=== PATIENT | male | born 1965 | race Caucasian/White ===

== ENCOUNTER 2020-08-15 11:34 | Observation (INO) | payer OTHER ==
[~2020-08-15] VITALS: Ht 182.9 cm; Wt 124.5 kg
[2020-08-15 12:17] LABS: BASOPHILS ABSOLUTE AUTO 0.16 K/mm3 (0.00-0.23); BASOPHILS PERCENT AUTO 2 % (0-2); EOSINOPHILS ABSOLUTE AUTO 0.33 K/mm3 (0.00-0.68); EOSINOPHILS PERCENT AUTO 4 % (0-6); Hematocrit 40.1 % (37.0-53.0); Hemoglobin 13.6 g/dL (13.5-17.5); IMMATURE GRAN ABSOLUTE AUTO 0.03 K/mm3 (0.00-0.10); IMMATURE GRAN PERCENT AUTO 0 % (0-1); LYMPHOCYTES ABSOLUTE AUTO 1.96 K/mm3 (0.84-5.20); LYMPHOCYTES PERCENT AUTO 23 % (21-46); MONOCYTES ABSOLUTE AUTO 0.85 K/mm3 (0.16-1.47); MONOCYTES PERCENT AUTO 10 % (4-13); Mean Corpuscular HGB 29.2 pg (26.0-34.0); Mean Corpuscular HGB Conc 33.9 g/dL (31.5-36.5); Mean Corpuscular Volume 86 fL (80-100); Mean Platelet Volume 9.8 fL (9.1-12.4); NEUTROPHILS ABSOLUTE AUTO 5.07 K/mm3 (1.96-9.15); NEUTROPHILS PERCENT AUTO 60 % (41-73); Platelet Count 114 K/mm3 (150-400); RDW Coefficient Variation 19.2 % (11.7-14.2); RDW Standard Deviation 60.5 fL (35.1-46.3); Red Blood Cell Count 4.65 M/mm3 (4.30-5.90)
[2020-08-15] MEDS ORDERED: Prinivil10 MG PO (12:19)
[2020-08-15] MEDS ORDERED: VENL37.5ER PO (12:20)
[2020-08-15] MEDS ORDERED: METF500 PO (12:24)
[2020-08-15] MEDS ORDERED: BANOPHEN25 MG PO (12:25)
[2020-08-15 12:42] LABS: Alanine Aminotransfer (ALT/SGP 69 U/L (12-78); Albumin, Blood 3.1 g/dL (3.4-5.0); Albumin/Globulin Ratio 0.6 (0.8-1.8); Alk Phos 122 U/L (50-136); Anion Gap 10 mmol/L (6-16); Aspartate Aminotrans (AST/SGOT 158 U/L (12-37); Bilirubin, Total 2.2 mg/dL (0.1-1.0); Blood Urea Nitrogen 10 mg/dL (8-24); Bun/Creatinine Ratio 15.7 (12.0-20.0); CO2, Blood 26 mmol/L (21-32); Calcium, Blood 7.8 mg/dL (8.5-10.1); Chloride, Blood 107 mmol/L (98-108); Creatinine, Blood 0.64 mg/dL (0.60-1.20); Globulin, Blood 4.8 g/dL (2.2-4.0); Glomerular Filtration Rate >60 (60-); Glucose, Blood 170 mg/dL (70-99); Potassium, Blood 3.6 mmol/L (3.5-5.5); Sodium, Blood 143 mmol/L (136-145); Total Protein, Blood 7.9 g/dL (6.4-8.2); Troponin I <0.015 ng/mL (0.000-0.040)
[2020-08-15 12:44] LABS: Salicylate <1.7 mg/dL (2.8-20.0)
[2020-08-15 12:50] LABS: Acetaminophen, Random <2.0 ug/mL (10.0-30.0); Ethanol (Alcohol), Blood, Med 332 mg/dL
[2020-08-15 13:14] LABS: Source, Urine Clean Catch
[2020-08-15 13:18] LABS: Appearance, Urine Clear (Clear); Blood, Urine 2+ (Neg); Color, Urine Amber (P-Yellow); Glucose Qualitative, Urine 1+ (Neg); Ketones, Urine 2+ (Neg); Leukocyte Esterase, Urine 1+ (Neg); Nitrite, Urine Pos (Neg); Protein, Urine 2+ (Neg); Specific Gravity, Urine 1.025 (1.003-1.022); Urobilinogen, Urine 4+ (Normal)
[2020-08-15 13:28] LABS: Bilirubin, Urine 2+ (Neg)
[2020-08-15 13:30] LABS: Hyaline Casts 0-2 /lpf (0-2)
[2020-08-15 13:31] LABS: Bacteria Many /hpf; Mucus Light (0-Heavy); Red Blood Cells, Urine 0-2 /hpf (0-2); Squamous Epithelial Cells Rare /hpf (Few)
[2020-08-15 13:34] LABS: U Amphetamine Screen Not Detected; U Barbituate Screen Not Detected; U Benzodiazapine Screen Not Detected; U Buprenorphine Screen Not Detected; U Cannabinoids Screen DETECTED; U Cocaine Screen Not Detected; U Methadone Screen Not Detected; U Methamphetamine Screen Not Detected; U Opiates Screen Not Detected; U Oxycodone Screen Not Detected; U Phencyclidine Screen Not Detected; U Propoxyphene Screen Not Detected
[2020-08-15] MEDS ORDERED: GABA100 PO (21:36)
[2020-08-16 01:18] LABS: BASOPHILS ABSOLUTE AUTO 0.08 K/mm3 (0.00-0.23); BASOPHILS PERCENT AUTO 2 % (0-2); EOSINOPHILS ABSOLUTE AUTO 0.18 K/mm3 (0.00-0.68); EOSINOPHILS PERCENT AUTO 4 % (0-6); Hematocrit 35.9 % (37.0-53.0); Hemoglobin 12.3 g/dL (13.5-17.5); IMMATURE GRAN ABSOLUTE AUTO 0.01 K/mm3 (0.00-0.10); IMMATURE GRAN PERCENT AUTO 0 % (0-1); LYMPHOCYTES ABSOLUTE AUTO 1.02 K/mm3 (0.84-5.20); LYMPHOCYTES PERCENT AUTO 20 % (21-46); MONOCYTES ABSOLUTE AUTO 0.71 K/mm3 (0.16-1.47); MONOCYTES PERCENT AUTO 14 % (4-13); Mean Corpuscular HGB 29.6 pg (26.0-34.0); Mean Corpuscular HGB Conc 34.3 g/dL (31.5-36.5); Mean Corpuscular Volume 86 fL (80-100); Mean Platelet Volume 9.8 fL (9.1-12.4); NEUTROPHILS ABSOLUTE AUTO 3.18 K/mm3 (1.96-9.15); NEUTROPHILS PERCENT AUTO 61 % (41-73); Platelet Count 74 K/mm3 (150-400); RDW Coefficient Variation 18.8 % (11.7-14.2); RDW Standard Deviation 59.7 fL (35.1-46.3); Red Blood Cell Count 4.16 M/mm3 (4.30-5.90); White Blood Cell Count 5.18 K/mm3 (4.00-11.30)
[2020-08-16 01:41] LABS: Alanine Aminotransfer (ALT/SGP 60 U/L (12-78); Albumin, Blood 2.8 g/dL (3.4-5.0); Albumin/Globulin Ratio 0.7 (0.8-1.8); Alk Phos 102 U/L (50-136); Anion Gap 7 mmol/L (6-16); Aspartate Aminotrans (AST/SGOT 148 U/L (12-37); Bilirubin, Total 2.8 mg/dL (0.1-1.0); Blood Urea Nitrogen 7 mg/dL (8-24); Bun/Creatinine Ratio 11.3 (12.0-20.0); CO2, Blood 28 mmol/L (21-32); CPK Creatine Kinase 531 U/L (39-308); Chloride, Blood 104 mmol/L (98-108); Creatinine, Blood 0.62 mg/dL (0.60-1.20); Globulin, Blood 4.3 g/dL (2.2-4.0); Glomerular Filtration Rate >60 (60-); Glucose, Blood 243 mg/dL (70-99); Potassium, Blood 3.6 mmol/L (3.5-5.5); Sodium, Blood 139 mmol/L (136-145); Total Protein, Blood 7.1 g/dL (6.4-8.2); Troponin I 0.019 ng/mL (0.000-0.040)
[2020-08-16 01:54] LABS: Creatine Kinase MB 11.7 ng/mL (0.0-3.6); Creatine Kinase MB Index 2.2 (0.0-4.0)
--- NOTE | 2020-08-16 04:48 | NUR ---
SHIFT SUMMARY NEW ED ADMIT THIS EVENING. SHORTLY AFTER ADMISSION PT REPORTED CHEST PAIN/PRESSURE. DESCRIBED IT DULL. MID STERNAL. DID NOT RADIATE. SAT PT UP IN BED AND APPLIED O2. CHEST PAIN RESOLVED. EKG DONE AT THE TIME. READING SINUS TACHYCARDIA W/ PAC'S IN THE 110'S. BOTH LIZANDRO HOPE, AND DR. SHAW NOTIFIED. TELEMETRY PLACED. 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 RATE IN THE LOW 100'S. PT COMPLAINING OF BACK PAIN THIS EVENING. MEDICATED X 1 W/ TORADOL. PT STATED IMPROVEMENT. DECLINED FURTHER PAIN MEDICATION AT THIS TIME. PT ANXIOUS. CIWA 2. PATIENT HAS HX OF HEAVY ETOH USE. DR. RIVER CONSULT ORDERED. FACE SHEET SENT TO ED. PT HAS DENIED ANY SUICIDAL IDEATION. PT HAS REMAINED ON 2 L O2 VIA NC FOR COMFORT. VITAL SIGNS HAVE BEEN STABLE. WILL CONTINUE TO MONITOR.
[2020-08-16 10:20] LABS: CPK Creatine Kinase 467 U/L (39-308); Troponin I <0.015 ng/mL (0.000-0.040)
[2020-08-16 10:49] LABS: Creatine Kinase MB 8.9 ng/mL (0.0-3.6); Creatine Kinase MB Index 1.9 (0.0-4.0)
--- NOTE | 2020-08-16 17:17 | NUR ---
SHIFT SUMMARY PT AxOx4. COOPERATIVE WITH CARE. PT SBA IN THE ROOM FOR ASSIST WITH CORDS/TUBES AND INTERMITTENT DIZZINESS. PT REPORTED HEART PALPITATIONS AND NAUSEA THIS AM, RESOLVED WITH REST AND 2L O2 VIA NC. PT HAD MRI OF BACK AND ECHOCARDIOGRAM TODAY. CARDIO CONSULTED FOR AFIB/AFLUTTER. PT LAST CIWA= 3 AND DENIES ANY SI. STILL WAITING ON PSYCH CONSULT AT THIS TIME. VITALS REVIEWED. PT BP RUNNING HYPERTENSIVE. BP MEDS ADJUSTED BY DR GRACE. CURRENTLY RESTING IN BED WITH CALL LIGHT IN REACH. DENIES ANY NEEDS AT THIS TIME.
[2020-08-17 05:52] LABS: Alanine Aminotransfer (ALT/SGP 60 U/L (12-78); Albumin, Blood 2.8 g/dL (3.4-5.0); Albumin/Globulin Ratio 0.6 (0.8-1.8); Alk Phos 102 U/L (50-136); Anion Gap 5 mmol/L (6-16); Aspartate Aminotrans (AST/SGOT 108 U/L (12-37); Bilirubin, Total 3.4 mg/dL (0.1-1.0); Blood Urea Nitrogen 8 mg/dL (8-24); Bun/Creatinine Ratio 12.3 (12.0-20.0); CO2, Blood 25 mmol/L (21-32); Calcium, Blood 7.5 mg/dL (8.5-10.1); Chloride, Blood 102 mmol/L (98-108); Creatinine, Blood 0.65 mg/dL (0.60-1.20); Globulin, Blood 4.5 g/dL (2.2-4.0); Glomerular Filtration Rate >60 (60-); Glucose, Blood 163 mg/dL (70-99); Potassium, Blood 3.8 mmol/L (3.5-5.5); Sodium, Blood 132 mmol/L (136-145); Total Protein, Blood 7.3 g/dL (6.4-8.2)
--- NOTE | 2020-08-17 05:58 | NUR ---
SHIFT SUMMARY: PATIENT IS A&OX4, CIWA SCORES OF 2,1 &5, FOR DIAPHORESIS AND NAUSEA. BLOOD GLUCOSE WAS SPOT CHECKED THIS AM, 173. BED ALARM REMAINS ON FOR SAFETY, PATIENT IS CALLING FOR ASSISTANCE OOB. DIZZINESS PERSIST, TELEMETRY HAS BEEN A FLUTTER IN THE 90'S THIS SHIFT.
[2020-08-17] MEDS ORDERED: METO50 PO (12:50)
[2020-08-17] MEDS ORDERED: ONDA4ODT MM (12:51)
[2020-08-17] MEDS ORDERED: XARELTO20 MG PO (12:51)
[2020-08-17] MEDS ORDERED: SULFAMETHOXAZO1 EAC1 PO (12:52)
--- NOTE | 2020-08-17 14:52 | NUR ---
DISCHARGE AT 1418 PT DISCHARGED AFTER BEING EVALUATED BY PHYSICAL THERAPY. DR. CARTER NOTIFIED THAT THE PHYSICAL THERAPIST SUSPECTS VESTIBULAR DISFUCTION. DR. CARTER STATED SHE WILL FOLLOW UP ON THIS WHEN THE PT FOLLOW UP WITH HER IN THE OFFICE. CARDIOLOGY OFFICE TO CALL PT WITH APPOINTMENT DAY AND TIME. NEW MEDS FAXED TO [facility] PER PT REQUEST. PT & HIS MOTHER EDUCATED ON NEW MEDS AND FOLLOW UP INSTRUCTIONS. BOTH DENY FURTHER NEED AT THIS TIME. PT WHEELED OUT BY AIDE & DRIVEN HOME BY THIS MOTHER.
== END 2020-08-17 14:18 | disposition home health service (06) ==
LOC: ER 11:34 → MEDS 11:35 → EOR 11:35 → MEDS 21:20
PROVIDERS: Family Medicine; Internal Medicine; Physician Assistant; ADMIT Emergency Medicine
DX: I48.92 Unspecified atrial flutter (principal); I48.91 Unspecified atrial fibrillation; R42 Dizziness and giddiness; R07.9 Chest pain, unspecified; H55.00 Unspecified nystagmus; F43.10 Post-traumatic stress disorder, unspecified; F32.9 Major depressive disorder, single episode, unspecified; I10 Essential (primary) hypertension; E83.42 Hypomagnesemia; N39.0 Urinary tract infection, site not specified; F10.220 Alcohol dependence with intoxication, uncomplicated; F10.239 Alcohol dependence with withdrawal, unspecified; G89.29 Other chronic pain; M54.5 Low back pain; R79.89 Other specified abnormal findings of blood chemistry; E11.40 Type 2 diabetes mellitus with diabetic neuropathy, unspecified; Z79.84 Long term (current) use of oral hypoglycemic drugs; Z87.891 Personal history of nicotine dependence; Z91.81 History of falling; Y90.8 Blood alcohol level of 240 mg/100 ml or more; X58.XXXA Exposure to other specified factors, initial encounter
CPT/HCPCS: 36415; 70450; 70551; 71046; 80053; 81001; 82550; 82553; 82947; 83690; 83735; 84484; 85025; 87086; 93005; 93010; 93306; 96365; 96366; 96367; 96375; 96376; 97110; 97112; 97162; 97165; 97530; 97535; 99285-25; A9270; G0378; G0480; J0696; J1885; J2405; J3411; J3475; J3480; J7030; J7042; Q3014